=== PATIENT | male | born 1965 | race Asian ===

== ENCOUNTER 2016-09-20 16:56 | Emergency (ER) | payer OTHER ==
[2016-09-20 17:08] VITALS: BP 141/100; PULSE 100; TEMP 97.3; BMI 31.3
--- NOTE | 2016-09-20 17:50 | PDOC ---
History of Present Illness - General Chief Complaint: Blood Sugar Problem Stated Complaint: HIGH BLOOD SUGAR Time Seen by Provider: 09/20/16 17:49 History Source: Patient Exam Limitations: No Limitations - History of Present Illness Initial Comments: 09/20/16 18:19 51 year old male drives to the ED with chief complaints of "high blood sugar of 404". A/c to the patient, his blood sugar has been between 250-300. Patient also experiences dizziness, drowsiness now but reports to have similar symptoms since weeks on/off. Says, he has been compliant with medications but hasn't been following diabetic diet or exercise. Last HbA1c was more than 8. Patient says he has been under a lot of stress. Gets severe headache on/off, went to see Dr. Crhistie and was given Barbiturates which didn't help, as per the patient. Also complaints of abdominal discomfort, abdominal bloating since few weeks, no nausea or vomiting Also reports he has been going to rehab for "group psycho therapy" daily and is under Buprenorphrine. Denies loc, trauma, tinnitus, vertigo, chest pain, sob, cough, palpitations. Bowel habit normal. Increased frequency of urination since he started taking water pills, no dysuria or incontinence. Has B/L leg swelling and is under water pills since few weeks. Rest of the ROS is negative. 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 Grubbs (PCP) Dr. Casanova Past History - Past Medical History Allergies/Adverse Reactions: Allergies Allergy/AdvReac Type Severity Reaction Status Date / Time No Known Allergies Allergy Verified 09/20/16 18:07 Home Medications: Ambulatory Orders Atorvastatin Ca [Lipitor] 10 mg PO HS 09/20/16 Buprenorphine/Naloxone [Suboxone 8Mg/2Mg Sl Film -] 1 each SL DAILY 09/20/16 Furosemide [Lasix] 20 mg PO DAILY 09/20/16 Losartan Potassium 25 mg PO DAILY 09/20/16 Sitagliptin Phos/Metformin HCl [Janumet 50-1,000 mg Tablet] 1 each PO BID Verapamil HCl [Verapamil ER] 120 mg PO DAILY 09/20/16 Anemia: No Asthma: No Cancer: No Cardiac Disorders: No CVA: No COPD: No CHF: No Dementia: No Diabetes: Yes (Type II) GI Disorders: No Disorders: No HTN: Yes (Pt is on meds.) Hypercholesterolemia: Yes (NO MED) Kidney Stones: Yes (sx of kiney stone) Liver Disease: No Psychiatric Problems: Yes (on risperdal) Suicide Attempt (Hx): Yes (last attempt in 1994 MOVERDOSE) Seizures: No Thyroid Disease: No - Surgical History Abdominal Surgery: No Appendectomy: No Cardiac Surgery: No Cholecystectomy: No Lung Surgery: No Neurologic Surgery: No Orthopedic Surgery: No - Reproductive History Testicular Surgery: No - Immunization History Immunization Up to Date: Yes - Psycho/Social/Smoking Cessation Hx Anxiety: No Suicidal Ideation: No Smoking History: Current every day smoker Have you smoked in the past 12 months: Yes Number of Cigarettes Smoked Daily: 20 Information on smoking cessation initiated: No 'Breaking Loose' booklet given: 02/28/16 Hx Alcohol Use: No Drug/Substance Use Hx: No (past) Substance Use Type: Prescribed Hx Substance Use Treatment: Yes (01/10/15 TO 01/15/15) Review of Systems - Review of Systems Able to Perform ROS?: Yes Comments:: 09/20/16 18:59 CONSTITUTIONAL: Present: generalized weakness Absent: fever, chills, diaphoresis, malaise, loss of appetite HEENT: Absent: rhinorrhea, nasal congestion, throat pain, throat swelling, difficulty swallowing, mouth swelling, ear pain, eye pain, visual Changes CARDIOVASCULAR: Absent: chest pain, syncope, palpitations, irregular heart rate, lightheadedness , peripheral edema RESPIRATORY: Absent: cough, shortness of breath, dyspnea with exertion, orthopnea, wheezing, stridor, hemoptysis GASTROINTESTINAL: Present: abdominal discomfort Absent: abdominal pain, abdominal distension, nausea, vomiting, diarrhea, constipation, melena, hematochezia GENITOURINARY: Absent: dysuria, frequency, urgency, hesitancy, hematuria, flank pain, genital pain MUSCULOSKELETAL: Absent: myalgia, arthralgia, joint swelling SKIN: Absent: rash, itching, pallor HEMATOLOGIC/IMMUNOLOGIC: Absent: easy bleeding, easy bruising, lymphadenopathy, frequent infections ENDOCRINE: Absent: unexplained weight gain, unexplained weight loss, heat intolerance, cold intolerance NEUROLOGIC: Present: Dizziness Absent: headache, focal weakness or paresthesias, dizziness, unsteady gait, seizure, mental status changes, bladder or bowel incontinence PSYCHIATRIC: Absent: anxiety, depression, suicidal or homicidal ideation, hallucinations. Is the patient limited Bulgarian proficient: No *Physical Exam - Vital Signs Last Vital Signs Temp Pulse Resp BP Pulse Ox 97.3 F L 100 H 20 141/100 96 09/20/16 17:03 09/20/16 17:03 09/20/16 17:03 09/20/16 17:03 09/20/16 17:03 09/20/16 19:04 PE: GENERAL: Awake, alert, and fully oriented, in no acute distress. HEAD: No signs of trauma EYES: PERRLA, EOMI, sclera anicteric, conjunctiva clear ENT: Auricles normal inspection, hearing grossly normal, nares patent, oropharynx clear without exudates. Moist mucosa NECK: Normal ROM, supple, no lymphadenopathy, JVD, or masses LUNGS: Breath sounds equal, clear to auscultation bilaterally. No wheezes, and no crackles.. HEART: Regular rate and rhythm, normal S1 and S2, no murmurs, rubs or gallops ABDOMEN: Soft, tenderness diffusely, distended +, normoactive bowel sounds. No guarding, no rebound. No masses EXTREMITIES: Normal range of motion, No clubbing or cyanosis. No cords, erythema , or tenderness. B/L pitting edema ++ upto the knees. NEUROLOGICAL: Cranial nerves II through XII grossly intact. Normal speech, Gait not observed. SKIN: Warm, Dry, normal turgor, no rashes or lesions noted. ED Treatment Course - LABORATORY CBC & Chemistry Diagram: 09/20/16 18:15 09/20/16 18:15 Medical Decision Making - Medical Decision Making 09/20/16 19:05 51 year old male with significant past medical h/o Diabetes, Gout, HTN, Substance induced mood disorder, substance abuse under Buprenorphine drives to the ED with chief complaints of "high blood sugar of 404". # Uncontrolled blood sugar- R/o DKA On arrival, patients finger stick glucose was 319 IV fluids @ 75mls/hr Ordered CBC, CMP, VBG, serum ketones- report pending. BMG x 1hrly Illness, Investigation and plan of care explained to the patient. He verbalized understanding. Case discussed with Dr. Maciel. *DC/Admit/Observation/Transfer Diagnosis at time of Disposition: Increased blood glucose
[2016-09-20] MEDS ORDERED: SODIUM CHLORIDE 1,000 ML IV SCH (18:15)
--- NOTE | 2016-09-20 18:48 | PDOC ---
[id number] I have performed the following: I have examined & evaluated the patient, The case was reviewed & discussed with the resident, I agree w/resident's findings & plan, Exceptions are as noted - HPI HPI: 09/20/16 18:47 51-year-old male with history of diabetes presents with hyperglycemia. Patient also has history obstructive sleep apnea and obesity. Reports the last several weeks of having elevated glucose is in the 300s. He had follow-up with his primary care physician wet switched him from metformin to Janumet. Reports adherence to his medications. Today, noted that his sugars were about 400 and came to the emergency department. Reports feeling dehydrated but denies other symptoms such as fevers, chills, cough, vomiting, diarrhea, dysuria. Denies chest pain or shortness of breath. - Physicial Exam PE: 09/20/16 20:40 GENERAL: Awake, alert, and fully oriented, in no acute distress. HEAD: No signs of trauma EYES: PERRLA, EOMI, sclera anicteric, conjunctiva clear ENT: Auricles normal inspection, hearing grossly normal, nares patent, oropharynx clear without exudates. NECK: Normal ROM, supple, no lymphadenopathy, JVD, or masses LUNGS: Breath sounds equal, clear to auscultation bilaterally. No wheezes, and no crackles HEART: Regular rate and rhythm, normal S1 and S2, no murmurs, rubs or gallops ABDOMEN: Soft, nontender, normoactive bowel sounds. No guarding, no rebound. No masses EXTREMITIES: Normal range of motion, no edema. No clubbing or cyanosis. No cords, erythema, or tenderness NEUROLOGICAL: Cranial nerves II through XII grossly intact. Normal speech, normal gait SKIN: Warm, Dry, normal turgor, no rashes or lesions noted. 09/26/16 13:23 CORRECTION TO RESIDENT NOTE. That was not pitting edema. The patient is an obese male but does NOT demonstrate features of pitting edema. Please disregard from resident note. - Medical Decision Making 09/20/16 20:40 We will rule out DKA, though have low suspicion. We'll give IV hydrations and when necessary insulin. If glucose is below 300, we'll encourage patient continue to take his genuine and have patient follow with PMD. Patient did just start his Janumet as well.
[2016-09-20 19:10] LABS: URINE APPEARANCE CLEAR; URINE BILIRUBIN NEGATIVE (NEGATIVE); URINE BLOOD NEGATIVE (NEGATIVE); URINE COLOR LTYELLOW; URINE GLUCOSE (UA) 3+ (NEGATIVE); URINE KETONE NEGATIVE (NEGATIVE); URINE LEUK ESTERASE NEGATIVE (NEGATIVE); URINE NITRITE NEGATIVE (NEGATIVE); URINE PROTEIN NEGATIVE (NEGATIVE); URINE UROBILINOGEN NEGATIVE E.U./dl (0.2-1.0)
[2016-09-20 19:16] LABS: EOSINOPHIL 4.1 % (0-4.5); MCH 30.8 pg (25.7-33.7); MCHC 34.6 g/dl (32.0-35.9); MEAN PLT VOLUME 9.5 fl (7.5-11.1); NEUTROPHILS 65.2 % (42.8-82.8); PLATELET COUNT 219 K/MM3 (134-434); RDW 12.6 % (11.9-15.9); WHITE BLOOD COUNT 8.2 K/mm3 (4.0-10.0)
[2016-09-20 19:24] LABS: INR 0.98 (0.82-1.09); PROTHROMBIN TIME (PATIENT) 10.8 SEC (9.98-11.88)
[2016-09-20 19:27] LABS: ACTIVATED PTT 36.9 SECONDS (26.9-34.4)
[2016-09-20 19:37] LABS: VENOUS PH 7.36 (7.32-7.42)
[2016-09-20 19:40] LABS: ALBUMIN 4.2 g/dl (3.4-5.0); ANION GAP 13 (8-16); CALCIUM 9.7 mg/dL (8.5-10.1); CO2 28 mmol/L (21-32); GLUCOSE,RANDOM 241 mg/dL (74-106)
[2016-09-20 19:43] LABS: ALK PHOS 130 U/L (45-117); BILIRUBIN,TOTAL 0.7 mg/dL (0.2-1.0); CREATININE 1.1 mg/dL (0.7-1.3); SGOT/AST 44 U/L (15-37); SGPT/ALT 68 U/L (12-78); TOT PROT 7.5 g/dl (6.4-8.2)
--- NOTE | 2016-09-20 20:41 | PDOC ---
*Physical Exam - Vital Signs Last Vital Signs Temp Pulse Resp BP Pulse Ox 97.3 F L 100 H 20 141/100 96 09/20/16 17:03 09/20/16 17:03 09/20/16 17:03 09/20/16 17:03 09/20/16 17:03 ED Treatment Course - LABORATORY CBC & Chemistry Diagram: 09/20/16 18:15 09/20/16 18:15 - ADDITIONAL ORDERS Additional order review: Laboratory Results 09/20/16 09/20/16 09/20/16 19:04 19:04 18:53 INR PTT (Actin FS) VBG pH 7.36 POC VBG pCO2 54.8 H POC VBG pO2 19.5 L* Mixed VBG HCO3 30.0 H Sodium Potassium Chloride Carbon Dioxide Anion Gap BUN Creatinine Creat Clearance w eGFR POC Glucometer Random Glucose Calcium Total Bilirubin AST ALT Alkaline Phosphatase B-Natriuretic Peptide 22.77 Total Protein Albumin Urine Color Ltyellow Urine Appearance Clear Urine pH 5.0 Ur Specific [place] 1.017 Urine Protein Negative Urine Glucose (UA) 3+ H Urine Ketones Negative Urine Blood Negative Urine Nitrite Negative Urine Bilirubin Negative Urine Urobilinogen Negative Ur Leukocyte Esterase Negative 09/20/16 09/20/16 09/20/16 18:43 18:15 18:00 INR 0.98 PTT (Actin FS) 36.9 H VBG pH POC VBG pCO2 POC VBG pO2 Mixed VBG HCO3 Sodium 136 Potassium 4.3 Chloride 95 L Carbon Dioxide 28 Anion Gap 13 BUN 16 D Creatinine 1.1 D Creat Clearance w eGFR > 60 POC Glucometer [phone] Random Glucose 241 H D Calcium 9.7 Total Bilirubin 0.7 D AST 44 H ALT 68 Alkaline Phosphatase 130 H D B-Natriuretic Peptide Total Protein 7.5 Albumin 4.2 Urine Color Urine Appearance Urine pH Ur Specific [place] Urine Protein Urine Glucose (UA) Urine Ketones Urine Blood Urine Nitrite Urine Bilirubin Urine Urobilinogen Ur Leukocyte Esterase 09/20/16 09/20/16 18:15 18:00 RBC 4.56 MCV 89.0 MCHC 34.6 RDW 12.6 MPV 9.5 Neutrophils % 65.2 Lymphocytes % 22.9 Monocytes % 6.8 Eosinophils % 4.1 Basophils % 1.0 POC Glucometer [phone] Medical Decision Making - Medical Decision Making 09/20/16 20:41 CBC, BMP 09/20/16 18:15 09/20/16 18:15 CMP Sodium 136 mmol/L (136-145) 09/20/16 18:15 Potassium 4.3 mmol/L (3.5-5.1) 09/20/16 18:15 Chloride 95 mmol/L (98-107) L 09/20/16 18:15 Carbon Dioxide 28 mmol/L (21-32) 09/20/16 18:15 Anion Gap 13 (8-16) 09/20/16 18:15 BUN 16 mg/dL (7-18) D 09/20/16 18:15 Creatinine 1.1 mg/dL (0.7-1.3) D 09/20/16 18:15 Creat Clearance w eGFR > 60 (>60) 09/20/16 18:15 POC Glucometer 319.31962 UNITS (()) 09/20/16 18:00 Random Glucose 241 mg/dL (74-106) H D 09/20/16 18:15 Calcium 9.7 mg/dL (8.5-10.1) 09/20/16 18:15 Total Bilirubin 0.7 mg/dL (0.2-1.0) D 09/20/16 18:15 AST 44 U/L (15-37) H 09/20/16 18:15 ALT 68 U/L (12-78) 09/20/16 18:15 Alkaline Phosphatase 130 U/L (45-117) H D 09/20/16 18:15 B-Natriuretic Peptide 22.77 pg/ml (5-125) 09/20/16 19:04 Total Protein 7.5 g/dl (6.4-8.2) 09/20/16 18:15 Albumin 4.2 g/dl (3.4-5.0) 09/20/16 18:15 Glucose is 241. Patient reports feeling much better after IVF. No AG. Will have patient continue to take his own medications and follow up with PMD. Patient satisfied with his care. I discussed the physical exam findings, ancillary test results and final diagnoses with the patient. I answered all of the patient's questions. The patient was satisfied with the care received and felt comfortable with the discharge plan and treatment plan. The patient will call their primary care physician within 24 hours to arrange follow-up and will return to the Emergency Department with any new, persistant or worsening symptoms. *DC/Admit/Observation/Transfer Diagnosis at time of Disposition: Blood sugar increased - Discharge Dispostion Disposition: HOME Condition at time of disposition: Improved Admit: No - Referrals Referrals: Tan Grubbs MD [Primary Care Provider] - - Patient Instructions Printed Discharge Instructions: DI for Hyperglycemia -- Adult Additional Instructions: Please continue to take you diabetes medication. Please drink plenty of fluids and rest. Follow up with your doctor. Call to schedule an appointment. - Post Discharge Activity
--- NOTE | 2016-09-23 16:24 | EKG ---
Test Reason : Blood Pressure : / mmHG Vent. Rate : 095 BPM Atrial Rate : 095 BPM P-R Int : 160 ms QRS Dur : 098 ms QT Int : 370 ms P-R-T Axes : 049 082 049 degrees QTc Int : 464 ms NORMAL SINUS RHYTHM NORMAL ECG WHEN COMPARED WITH ECG OF 01-JAN-2014 07:50, NO SIGNIFICANT CHANGE WAS FOUND Confirmed by TRI SAUCEDO MD ([id number]) on 09/23/2016 4:23:34 PM Referred By: Confirmed By:TRI SAUCEDO MD
== END 2016-09-20 20:50 | disposition home or self-care (01) ==
LOC: JER 16:56
DX: E11.65 Type 2 diabetes mellitus with hyperglycemia (principal); F99 Mental disorder, not otherwise specified; I10 Essential (primary) hypertension; F17.210 Nicotine dependence, cigarettes, uncomplicated
CPT/HCPCS: 36415; 80053; 81003; 82009; 82803; 83880; 85025; 85610; 85730; 93005; 93010; 99285-25

== ENCOUNTER → 2016-11-25 | Emergency (ER) | payer OTHER ==
[2016-11-25 16:08] VITALS: BP 138/83; PULSE 95; BMI 69.0
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
--- NOTE | 2016-11-27 08:21 | EKG ---
Test Reason : Blood Pressure : / mmHG Vent. Rate : 087 BPM Atrial Rate : 087 BPM P-R Int : 162 ms QRS Dur : 098 ms QT Int : 382 ms P-R-T Axes : 050 055 049 degrees QTc Int : 459 ms NORMAL SINUS RHYTHM POSSIBLE LEFT ATRIAL ENLARGEMENT POSSIBLE INFERIOR INFARCT , AGE UNDETERMINED ABNORMAL ECG WHEN COMPARED WITH ECG OF 20-SEP-2016 17:11, NO SIGNIFICANT CHANGE WAS FOUND Confirmed by SHERYL SARAVIA, TRI ([id number]) on 11/27/2016 8:20:47 AM Referred By: Confirmed By:TRI SAUCEDO MD
== END | disposition home or self-care (01) ==
LOC: JER 16:01
DX: Z04.1 Encounter for examination and observation following transport accident (principal); V43.52XA Car driver injured in collision with other type car in traffic accident, initial encounter; Y92.414 Local residential or business street as the place of occurrence of the external cause; Y93.89 Activity, other specified; I10 Essential (primary) hypertension; E78.00 Pure hypercholesterolemia, unspecified; F17.210 Nicotine dependence, cigarettes, uncomplicated; Z87.442 Personal history of urinary calculi
CPT/HCPCS: 93005; 93010; 99281-25

== ENCOUNTER 2017-04-04 08:24 | Inpatient (IN) | payer OTHER ==
[2017-04-04 10:59] VITALS: BMI 33.5
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
[2017-04-04] MEDS ORDERED: MAGNESIUM HYDROX 2400MG/30ML ORAL SUSPENSION 30 ML CUP PO PRN (12:35)
[2017-04-04] MEDS ORDERED: MENTHOL/PHENOL 1 EACH UD MM PRN (12:35)
[2017-04-04] MEDS ORDERED: MAGNESIUM CITRATE 300 ML BOTTLE PO PRN (12:35)
[2017-04-04] MEDS ORDERED: ACETAMINOPHEN 325 MG TABLET (FP) PO PRN (12:35)
[2017-04-04] MEDS ORDERED: P-EPHED 60MG/TRIPROLIDI 2.5MG TABLET PO PRN (12:35)
[2017-04-04] MEDS ORDERED: IBUPROFEN 600 MG TABLET (FP) PO PRN (12:35)
[2017-04-04] MEDS ORDERED: LOPERAMIDE HCL 2 MG CAPSULE PO PRN (12:35)
[2017-04-04] MEDS ORDERED: MAG HYDROX/AL HYDROX/SIMETH 30 ML UNIT-DOSE CUP PO PRN (12:35)
[2017-04-04] MEDS ORDERED: guaiFENesin/D-METHORPHAN HB 10 ML UNIT-DOSE CUPS PO PRN (12:35)
[2017-04-04] MEDS ORDERED: METHADONE HCL 10 MG TABLET (FOR DETOX USE ONLY) PO ONE ×2 (13:15→23:00)
[2017-04-04] MEDS: diazePAM 5 MG TABLET PO PRN ×2 (13:41→18:12)
[2017-04-04 15:44] LABS: HIV 1 & 2 AB NEGATIVE; HIV 1 AGp24 NEGATIVE
--- NOTE | 2017-04-04 15:46 | CONSULT ---
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 Substance Abuse History: Discussed in this session.Patient confirmed this account from [facility] report. Smoking Cessation. Smoking history: Current every day smoker. Have you smoked in the past 12 months: Yes. Aproximately how many cigarettes per day: 20. Hx Chewing Tobacco Use: No. Initiated information on smoking cessation: Yes. 'Breaking Loose' booklet given: 04/04/17. - Substance & Tx. History. Hx Alcohol Use: Yes. Hx Substance Use: Yes. Substance Use Type : Alcohol, Heroin. Hx Substance Use Treatment: Yes (last detox 02/2016). - Substances Abused. Percocet. Route: Oral. Frequency: Daily. Amount used: 20 tabs. (10 mg.). Age of first use: 47. Date of Last Use: 04/04/17. Alcohol-whisky. Route: Oral. Frequency: 1-3 times last 30 days. Amount used: 2 shots. Age of first use: 16. Date of Last Use: 04/02/17 Medical History: Remarkable for insulin-dependent diabetes mellitus,dyslipidemia ,hypertension,gout,obstructive sleep apnea and a history of nephrolithiasis. Psychiatric History: Mr Parikh admits to a remote history of psychiatric hospitalizations (30 years ago).Diagnosed with Paranoid Schizophrenia.Used to be on various antipsychotic drugs including thorazine,haloperidol and risperdal.Patient reports that he has been off medications for more than six months following a gradual taper by his psychiatrists.Doing well in spite of this reported drug holiday.Patient denies history of suicide attempts.Mr Parikh declares that he dropped out the suboxone program because of intolerable adverse effects (severe cognitive impairment,oversedation). Physical/Sexual Abuse/Trauma History: Patient denies. Additional Comment: Urine Drug Screen Results: OXY-Oxycodone.Noted. Mental Status Exam - Mental Status Exam Alert and Oriented to: Time, Place, Person Cognitive Function: Good Patient Appearance: Well Groomed (obese) Mood: Hopeful, Euthymic Affect: Appropriate, Normal Range Patient Behavior: Appropriate, Cooperative (friendly) Speech Pattern: Clear, Appropriate (mongolian fluent - raised in the [place] age 8 - and articulate) Voice Loudness: Normal Thought Process: Goal Oriented Thought Disorder: Not Present Hallucinations: Denies Suicidal Ideation: Denies Homicidal Ideation: Denies Insight/Judgement: Poor Sleep: Well Appetite: Good Muscle strength/Tone: Normal Gait/Station: Normal Psychiatric Findings - Problem List ([place] 1, 2,3) (1) Paranoid schizophrenia Current Visit: Yes Status: Chronic Comment: Off antipsychotic medications for more than six months. (2) Opioid dependence with withdrawal Current Visit: Yes Status: Acute Comment: pt meets criteria for buprenorphine induction rx given will induce with titration 02/27-02/28 #8 x 2mg tabs (3) Nicotine dependence Current Visit: Yes Status: Acute Qualifiers: Nicotine product type: cigarettes Substance use status: uncomplicated Qualified Code(s): F17.210 - Nicotine dependence, cigarettes, uncomplicated (4) Diabetes mellitus Current Visit: Yes Status: Chronic Qualifiers: Diabetes mellitus type: type 2 Diabetes mellitus complication status: without complication (5) Hypertension Current Visit: Yes Status: Chronic Qualifiers: Hypertension type: essential hypertension Qualified Code(s): I10 - Essential (primary) hypertension (6) Obesity Current Visit: Yes Status: Chronic Qualifiers: Obesity classification: adult class 1 (BMI 30 ? 34.9) Body mass index: BMI 33.0-33.9 (7) RAMA (obstructive sleep apnea) Current Visit: Yes Status: Chronic (8) Gout Current Visit: Yes Status: Chronic - Initial Treatment Plan Initial Treatment Plan: Psychoeducation.Detoxification.Observation.
[2017-04-04] MEDS ORDERED: INSULIN (NOVOLOG) ASPART 100 UNITS/ML 10ML VIAL ONE (17:01)
[2017-04-04] MEDS: INSULIN (NOVOLOG) ASPART 100 UNITS/ML 10ML VIAL SQ SCH (17:07)
[2017-04-04 21:13] LABS: PH,URINE 5.5 (5.0-8.0); URINE APPEARANCE CLEAR; URINE BILIRUBIN NEGATIVE (NEGATIVE); URINE BLOOD NEGATIVE (NEGATIVE); URINE COLOR LT. YELLOW; URINE GLUCOSE (UA) 1+ (NEGATIVE); URINE KETONE 1+ (NEGATIVE); URINE LEUK ESTERASE NEGATIVE (NEGATIVE); URINE NITRITE NEGATIVE (NEGATIVE); URINE PROTEIN NEGATIVE (NEGATIVE); URINE UROBILINOGEN 0.2 mg/dL (0.2-1.0)
[2017-04-04] MEDS: ATORVASTATIN CA 10 MG TABLET (FP) PO SCH (22:20)
[2017-04-04] MEDS: THIAMINE HCL 100 MG TABLET (FP) PO SCH (22:20)
[2017-04-05] MEDS: diazePAM 5 MG TABLET PO PRN ×4 (00:25→22:11)
[2017-04-05] MEDS: diphenhydrAMINE HCL 50 MG CAPSULE PO PRN ×2 (00:26→22:11)
[2017-04-05] MEDS: metFORMIN HCL 500 MG TABLET (FP) PO SCH (07:35)
[2017-04-05] MEDS ORDERED: INSULIN (NOVOLOG) ASPART 100 UNITS/ML 10ML VIAL ONE ×2 (07:38→11:30)
[2017-04-05] MEDS: INSULIN (NOVOLOG) ASPART 100 UNITS/ML 10ML VIAL SQ SCH ×3 (07:40→16:50)
[2017-04-05] MEDS ORDERED: METHADONE HCL 10 MG TABLET (FOR DETOX USE ONLY) PO ONE (10:00)
[2017-04-05 10:31] LABS: MCH 31.4 pg (25.7-33.7); MCHC 34.1 g/dl (32.0-35.9); MEAN CELL VOLUME 92.2 fl (80-96); MEAN PLT VOLUME 9.8 fl (7.5-11.1); PLATELET COUNT 233 K/MM3 (134-434); RDW 12.7 % (11.9-15.9)
[2017-04-05] MEDS: PRENATAL VITAMINS W/ FOLIC ACID TABLET (FP) PO SCH (10:45)
[2017-04-05] MEDS: hydrOXYzine PAMOATE 50 MG CAPSULE (FP) PO PRN (10:45)
[2017-04-05] MEDS: NICOTINE 21 MG/24 HOURS TOPICAL PATCH TD SCH (10:46)
[2017-04-05 10:49] LABS: CALCIUM 9.9 mg/dL (8.5-10.1)
[2017-04-05 10:55] LABS: ALBUMIN 4.3 g/dl (3.4-5.0); ALK PHOS 86 U/L (45-117); ANION GAP 10 (8-16); BILIRUBIN,TOTAL 0.9 mg/dL (0.2-1.0); CO2 26 mmol/L (21-32); CREATININE 0.9 mg/dL (0.7-1.3); GLUCOSE,RANDOM 175 mg/dL (74-106); SGOT/AST 25 U/L (15-37); SGPT/ALT 46 U/L (12-78); TOT PROT 7.5 g/dl (6.4-8.2)
--- NOTE | 2017-04-05 11:11 | PN ---
BHS COWS - Scale Resting Pulse: 1= [place] 81-100 Sweatin= Chills/Flushing Restless Observation: 1= Difficult to Sit Still Pupil Size: 1= Pupils >than Normal Bone or Joint Aches: 1= Mild Discomfort Runny Nose/ Eye Tearin= Nasal Congestion GI Upset > 30mins: 2= Nausea/Diarrhea Tremor Observation of Outstretched Hands: 1= Tremor [place], Not Seen Yawning Observation: 1= 1-2x During Session Anxiety or Irritability: 2=Irritable/Anxious Goose Flesh Skin: 3=Piloerection COWS Score: 15 S Progress Note (SOAP) Subjective: nausea, sweats, interrupted sleep, anxiety, tremors Objective: 04/05/17 11:10 Vital Signs - 8 hr 04/05/17 04/05/17 04/05/17 03:30 06:00 10:07 Temperature 97.2 F L 97.5 F L Pulse Rate 66 86 Respiratory 18 18 16 Rate Blood Pressure 143/77 138/80 Laboratory Tests 04/04/17 04/04/17 04/04/17 10:34 12:00 14:00 WBC RBC Hgb Hct MCV MCH MCHC RDW Plt Count MPV Sodium Potassium Chloride Carbon Dioxide Anion Gap BUN Creatinine Creat Clearance w eGFR POC Glucometer 214 Random Glucose Calcium Total Bilirubin AST ALT Alkaline Phosphatase Total Protein Albumin Urine Color Lt. yellow Urine Appearance Clear Urine pH 5.5 Ur Specific [place] >= 1.030 H Urine Protein Negative Urine Glucose (UA) 1+ H Urine Ketones 1+ H Urine Blood Negative Urine Nitrite Negative Urine Bilirubin Negative Urine Urobilinogen 0.2 Ur Leukocyte Esterase Negative HIV 1&2 Antibody Screen Negative HIV P24 Antigen Negative 04/04/17 04/05/17 04/05/17 16:41 06:00 06:00 WBC 9.0 RBC 4.76 Hgb 15.0 Hct 43.9 MCV 92.2 MCH 31.4 MCHC 34.1 RDW 12.7 Plt Count 233 MPV 9.8 Sodium 138 Potassium 4.4 Chloride 102 Carbon Dioxide 26 Anion Gap 10 BUN 13 Creatinine 0.9 Creat Clearance w eGFR > 60 POC Glucometer 248 Random Glucose 175 H D Calcium 9.9 Total Bilirubin 0.9 D AST 25 D ALT 46 D Alkaline Phosphatase 86 D Total Protein 7.5 Albumin 4.3 Urine Color Urine Appearance Urine pH Ur Specific [place] Urine Protein Urine Glucose (UA) Urine Ketones Urine Blood Urine Nitrite Urine Bilirubin Urine Urobilinogen Ur Leukocyte Esterase HIV 1&2 Antibody Screen HIV P24 Antigen Assessment: 04/05/17 11:11 withdrawal sx Plan: cont detox, fluids
[2017-04-05] MEDS: LOSARTAN POTASSIUM 25 MG TABLET PO SCH (11:57)
[2017-04-05] MEDS: VERAPAMIL HCL 120 MG E.R. TABLET PO SCH (11:58)
--- NOTE | 2017-04-05 13:03 | EKG ---
Test Reason : Blood Pressure : / mmHG Vent. Rate : 074 BPM Atrial Rate : 074 BPM P-R Int : 150 ms QRS Dur : 102 ms QT Int : 384 ms P-R-T Axes : 022 040 056 degrees QTc Int : 426 ms NORMAL SINUS RHYTHM QWAVES IN III AND aVF PROBABLE EARLY REPOLARIZATION PATTERN WHEN COMPARED WITH ECG OF 25-NOV-2016 16:14, NO SIGNIFICANT CHANGE WAS FOUND REPEAT EKG IF CLINICALLY INDICATED Confirmed by ANDERSON PALACIOS MD ([id number]) on 04/05/2017 1:02:53 PM Referred By: Confirmed By:ANDERSON PALACIOS MD
[2017-04-05] MEDS: NICOTINE POLACRILEX 4 MG GUM BC PRN (14:22)
[2017-04-05] MEDS: THIAMINE HCL 100 MG TABLET (FP) PO SCH (22:11)
[2017-04-05] MEDS: ATORVASTATIN CA 10 MG TABLET (FP) PO SCH (22:11)
[2017-04-06] MEDS ORDERED: INSULIN (NOVOLOG) ASPART 100 UNITS/ML 10ML VIAL ONE ×3 (06:23→17:08)
[2017-04-06] MEDS: metFORMIN HCL 500 MG TABLET (FP) PO SCH (06:50)
[2017-04-06] MEDS: INSULIN (NOVOLOG) ASPART 100 UNITS/ML 10ML VIAL SQ SCH ×3 (06:56→17:17)
[2017-04-06] MEDS ORDERED: METHADONE HCL 5 MG TABLET (FOR DETOX USE ONLY) PO ONE (10:00)
--- NOTE | 2017-04-06 10:19 | PN ---
S COWS - Scale Resting Pulse: 1= [place] 81-100 Sweatin= Chills/Flushing Restless Observation: 1= Difficult to Sit Still Pupil Size: 1= Pupils >than Normal Bone or Joint Aches: 1= Mild Discomfort Runny Nose/ Eye Tearin= Nasal Congestion GI Upset > 30mins: 2= Nausea/Diarrhea Tremor Observation of Outstretched Hands: 1= Tremor [place], Not Seen Yawning Observation: 1= 1-2x During Session Anxiety or Irritability: 2=Irritable/Anxious Goose Flesh Skin: 3=Piloerection COWS Score: 15 S Progress Note (SOAP) Subjective: nausea, sweats, interrutped sleep, anxiety, tremors Objective: 04/06/17 10:18 Vital Signs - 24 hr 04/05/17 04/05/17 04/05/17 14:41 18:21 23:17 Temperature 98.1 F 97.3 F L 97.9 F Pulse Rate 97 H 100 H 89 Respiratory 18 20 18 Rate Blood Pressure 150/92 148/86 147/90 04/06/17 04/06/17 04/06/17 00:30 03:30 06:19 Temperature 96.6 F L Pulse Rate 90 Respiratory 18 18 20 Rate Blood Pressure 129/90 Laboratory Tests 04/04/17 04/04/17 04/04/17 10:34 12:00 14:00 WBC RBC Hgb Hct MCV MCH MCHC RDW Plt Count MPV Sodium Potassium Chloride Carbon Dioxide Anion Gap BUN Creatinine Creat Clearance w eGFR POC Glucometer 214 Random Glucose Calcium Total Bilirubin AST ALT Alkaline Phosphatase Total Protein Albumin Urine Color Lt. yellow Urine Appearance Clear Urine pH 5.5 Ur Specific [place] >= 1.030 H Urine Protein Negative Urine Glucose (UA) 1+ H Urine Ketones 1+ H Urine Blood Negative Urine Nitrite Negative Urine Bilirubin Negative Urine Urobilinogen 0.2 Ur Leukocyte Esterase Negative RPR Titer HIV 1&2 Antibody Screen Negative HIV P24 Antigen Negative 04/04/17 04/05/17 04/05/17 16:41 06:00 06:00 WBC 9.0 RBC 4.76 Hgb 15.0 Hct 43.9 MCV 92.2 MCH 31.4 MCHC 34.1 RDW 12.7 Plt Count 233 MPV 9.8 Sodium 138 Potassium 4.4 Chloride 102 Carbon Dioxide 26 Anion Gap 10 BUN 13 Creatinine 0.9 Creat Clearance w eGFR > 60 POC Glucometer 248 Random Glucose 175 H D Calcium 9.9 Total Bilirubin 0.9 D AST 25 D ALT 46 D Alkaline Phosphatase 86 D Total Protein 7.5 Albumin 4.3 Urine Color Urine Appearance Urine pH Ur Specific [place] Urine Protein Urine Glucose (UA) Urine Ketones Urine Blood Urine Nitrite Urine Bilirubin Urine Urobilinogen Ur Leukocyte Esterase RPR Titer HIV 1&2 Antibody Screen HIV P24 Antigen 04/05/17 04/05/17 04/05/17 06:00 11:27 16:28 WBC RBC Hgb Hct MCV MCH MCHC RDW Plt Count MPV Sodium Potassium Chloride Carbon Dioxide Anion Gap BUN Creatinine Creat Clearance w eGFR POC Glucometer 182 142 Random Glucose Calcium Total Bilirubin AST ALT Alkaline Phosphatase Total Protein Albumin Urine Color Urine Appearance Urine pH Ur Specific [place] Urine Protein Urine Glucose (UA) Urine Ketones Urine Blood Urine Nitrite Urine Bilirubin Urine Urobilinogen Ur Leukocyte Esterase RPR Titer Nonreactive HIV 1&2 Antibody Screen HIV P24 Antigen 04/06/17 05:53 WBC RBC Hgb Hct MCV MCH MCHC RDW Plt Count MPV Sodium Potassium Chloride Carbon Dioxide Anion Gap BUN Creatinine Creat Clearance w eGFR POC Glucometer 194 Random Glucose Calcium Total Bilirubin AST ALT Alkaline Phosphatase Total Protein Albumin Urine Color Urine Appearance Urine pH Ur Specific [place] Urine Protein Urine Glucose (UA) Urine Ketones Urine Blood Urine Nitrite Urine Bilirubin Urine Urobilinogen Ur Leukocyte Esterase RPR Titer HIV 1&2 Antibody Screen HIV P24 Antigen Assessment: 04/06/17 10:19 withdrawal sx Plan: cont detox
[2017-04-06] MEDS: LOSARTAN POTASSIUM 25 MG TABLET PO SCH (10:35)
[2017-04-06] MEDS: PRENATAL VITAMINS W/ FOLIC ACID TABLET (FP) PO SCH (10:35)
[2017-04-06] MEDS: NICOTINE 21 MG/24 HOURS TOPICAL PATCH TD SCH (10:36)
[2017-04-06] MEDS: VERAPAMIL HCL 120 MG E.R. TABLET PO SCH (10:36)
[2017-04-06] MEDS: diazePAM 5 MG TABLET PO PRN ×3 (10:39→22:19)
[2017-04-06] MEDS: NICOTINE POLACRILEX 4 MG GUM BC PRN (18:32)
[2017-04-06] MEDS: THIAMINE HCL 100 MG TABLET (FP) PO SCH (22:18)
[2017-04-06] MEDS: diphenhydrAMINE HCL 50 MG CAPSULE PO PRN (22:19)
[2017-04-06] MEDS: ATORVASTATIN CA 10 MG TABLET (FP) PO SCH (23:16)
[2017-04-07] MEDS: diphenhydrAMINE HCL 50 MG CAPSULE PO PRN ×2 (00:57→22:14)
[2017-04-07] MEDS ORDERED: INSULIN (NOVOLOG) ASPART 100 UNITS/ML 10ML VIAL ONE ×3 (07:53→16:39)
[2017-04-07] MEDS: metFORMIN HCL 500 MG TABLET (FP) PO SCH (07:55)
[2017-04-07] MEDS: INSULIN (NOVOLOG) ASPART 100 UNITS/ML 10ML VIAL SQ SCH ×3 (07:56→17:45)
[2017-04-07] MEDS ORDERED: METHADONE HCL 5 MG TABLET (FOR DETOX USE ONLY) PO ONE (10:00)
[2017-04-07] MEDS: VERAPAMIL HCL 120 MG E.R. TABLET PO SCH (10:10)
[2017-04-07] MEDS: hydrOXYzine PAMOATE 50 MG CAPSULE (FP) PO PRN (10:10)
[2017-04-07] MEDS: PRENATAL VITAMINS W/ FOLIC ACID TABLET (FP) PO SCH (10:10)
[2017-04-07] MEDS: diazePAM 5 MG TABLET PO PRN (10:10)
[2017-04-07] MEDS: LOSARTAN POTASSIUM 25 MG TABLET PO SCH (10:10)
[2017-04-07] MEDS: NICOTINE 21 MG/24 HOURS TOPICAL PATCH TD SCH (10:11)
--- NOTE | 2017-04-07 10:42 | PN ---
BHS Progress Note (SOAP) Subjective: nausea, sweats, interrupted sleep, anxiety, tremors Objective: 04/07/17 10:41 Vital Signs 04/07/17 04/07/17 04/07/17 03:30 06:34 09:31 Temperature 98.1 F Pulse Rate 90 87 Respiratory 18 20 18 Rate Blood Pressure 112/83 135/75 Laboratory Tests 04/04/17 04/04/17 04/04/17 10:34 12:00 14:00 WBC RBC Hgb Hct MCV MCH MCHC RDW Plt Count MPV Sodium Potassium Chloride Carbon Dioxide Anion Gap BUN Creatinine Creat Clearance w eGFR POC Glucometer 214 Random Glucose Calcium Total Bilirubin AST ALT Alkaline Phosphatase Total Protein Albumin Urine Color Lt. yellow Urine Appearance Clear Urine pH 5.5 Ur Specific [place] >= 1.030 H Urine Protein Negative Urine Glucose (UA) 1+ H Urine Ketones 1+ H Urine Blood Negative Urine Nitrite Negative Urine Bilirubin Negative Urine Urobilinogen 0.2 Ur Leukocyte Esterase Negative RPR Titer HIV 1&2 Antibody Screen Negative HIV P24 Antigen Negative 04/04/17 04/05/17 04/05/17 16:41 06:00 06:00 WBC 9.0 RBC 4.76 Hgb 15.0 Hct 43.9 MCV 92.2 MCH 31.4 MCHC 34.1 RDW 12.7 Plt Count 233 MPV 9.8 Sodium 138 Potassium 4.4 Chloride 102 Carbon Dioxide 26 Anion Gap 10 BUN 13 Creatinine 0.9 Creat Clearance w eGFR > 60 POC Glucometer 248 Random Glucose 175 H D Calcium 9.9 Total Bilirubin 0.9 D AST 25 D ALT 46 D Alkaline Phosphatase 86 D Total Protein 7.5 Albumin 4.3 Urine Color Urine Appearance Urine pH Ur Specific [place] Urine Protein Urine Glucose (UA) Urine Ketones Urine Blood Urine Nitrite Urine Bilirubin Urine Urobilinogen Ur Leukocyte Esterase RPR Titer HIV 1&2 Antibody Screen HIV P24 Antigen 04/05/17 04/05/17 04/05/17 06:00 11:27 16:28 WBC RBC Hgb Hct MCV MCH MCHC RDW Plt Count MPV Sodium Potassium Chloride Carbon Dioxide Anion Gap BUN Creatinine Creat Clearance w eGFR POC Glucometer 182 142 Random Glucose Calcium Total Bilirubin AST ALT Alkaline Phosphatase Total Protein Albumin Urine Color Urine Appearance Urine pH Ur Specific [place] Urine Protein Urine Glucose (UA) Urine Ketones Urine Blood Urine Nitrite Urine Bilirubin Urine Urobilinogen Ur Leukocyte Esterase RPR Titer Nonreactive HIV 1&2 Antibody Screen HIV P24 Antigen 04/06/17 04/06/17 04/06/17 05:53 11:42 16:36 WBC RBC Hgb Hct MCV MCH MCHC RDW Plt Count MPV Sodium Potassium Chloride Carbon Dioxide Anion Gap BUN Creatinine Creat Clearance w eGFR POC Glucometer 194 262 262 Random Glucose Calcium Total Bilirubin AST ALT Alkaline Phosphatase Total Protein Albumin Urine Color Urine Appearance Urine pH Ur Specific [place] Urine Protein Urine Glucose (UA) Urine Ketones Urine Blood Urine Nitrite Urine Bilirubin Urine Urobilinogen Ur Leukocyte Esterase RPR Titer HIV 1&2 Antibody Screen HIV P24 Antigen Assessment: 04/07/17 10:42 withdrawal sx Plan: cont detox
[2017-04-07] MEDS: THIAMINE HCL 100 MG TABLET (FP) PO SCH (22:14)
[2017-04-07] MEDS: ATORVASTATIN CA 10 MG TABLET (FP) PO SCH (22:14)
[2017-04-08] MEDS ORDERED: INSULIN (NOVOLOG) ASPART 100 UNITS/ML 10ML VIAL ONE ×4 (06:34→16:47)
[2017-04-08] MEDS: metFORMIN HCL 500 MG TABLET (FP) PO SCH (06:48)
[2017-04-08] MEDS: INSULIN (NOVOLOG) ASPART 100 UNITS/ML 10ML VIAL SQ SCH ×3 (06:49→16:46)
[2017-04-08] MEDS ORDERED: METHADONE HCL 10 MG TABLET (FOR DETOX USE ONLY) PO ONE (10:00)
[2017-04-08] MEDS: PRENATAL VITAMINS W/ FOLIC ACID TABLET (FP) PO SCH (10:34)
[2017-04-08] MEDS: LOSARTAN POTASSIUM 25 MG TABLET PO SCH (10:34)
[2017-04-08] MEDS: NICOTINE 21 MG/24 HOURS TOPICAL PATCH TD SCH (10:34)
[2017-04-08] MEDS: VERAPAMIL HCL 120 MG E.R. TABLET PO SCH (10:34)
--- NOTE | 2017-04-08 11:26 | PN ---
BHS Progress Note (SOAP) Subjective: anxiety sweats Objective: 04/08/17 11:25 Vital Signs Temperature 97.2 F L 04/08/17 10:55 Pulse Rate 90 04/08/17 10:55 Respiratory Rate 18 04/08/17 10:55 Blood Pressure 137/83 04/08/17 10:55 O2 Sat by Pulse Oximetry (%) awake/alert ambulating no acute distress Assessment: 04/08/17 11:25 mild withdrawal sx Plan: continue detox increase fluids d/c in am
[2017-04-08] MEDS: THIAMINE HCL 100 MG TABLET (FP) PO SCH (22:19)
[2017-04-08] MEDS: diphenhydrAMINE HCL 50 MG CAPSULE PO PRN (22:19)
[2017-04-08] MEDS: ATORVASTATIN CA 10 MG TABLET (FP) PO SCH (22:19)
[2017-04-09] MEDS ORDERED: METHADONE HCL 5 MG TABLET (FOR DETOX USE ONLY) PO ONE (06:00)
[2017-04-09] MEDS ORDERED: INSULIN (NOVOLOG) ASPART 100 UNITS/ML 10ML VIAL ONE (06:26)
[2017-04-09] MEDS: metFORMIN HCL 500 MG TABLET (FP) PO SCH (06:28)
[2017-04-09] MEDS: INSULIN (NOVOLOG) ASPART 100 UNITS/ML 10ML VIAL SQ SCH (06:28)
--- NOTE | 2017-04-09 09:21 | DS ---
[facility] Detox Discharge Summary Admission Date: 04/04/17 Discharge Date: 04/09/17 - History Present History: Opioid Dependence Pertinent Past History: nicotine dependence, DM, gout, insomnia, anxiety, depression - Physical Exam Results Vital Signs: Vital Signs Temperature 97.7 F 04/09/17 05:53 Pulse Rate 91 H 04/09/17 05:53 Respiratory Rate 18 04/09/17 05:53 Blood Pressure 136/86 04/09/17 05:53 O2 Sat by Pulse Oximetry (%) Laboratory Tests 04/04/17 04/04/17 04/04/17 10:34 12:00 14:00 WBC RBC Hgb Hct MCV MCH MCHC RDW Plt Count MPV Sodium Potassium Chloride Carbon Dioxide Anion Gap BUN Creatinine Creat Clearance w eGFR POC Glucometer 214 Random Glucose Calcium Total Bilirubin AST ALT Alkaline Phosphatase Total Protein Albumin Urine Color Lt. yellow Urine Appearance Clear Urine pH 5.5 Ur Specific [place] >= 1.030 H Urine Protein Negative Urine Glucose (UA) 1+ H Urine Ketones 1+ H Urine Blood Negative Urine Nitrite Negative Urine Bilirubin Negative Urine Urobilinogen 0.2 Ur Leukocyte Esterase Negative RPR Titer HIV 1&2 Antibody Screen Negative HIV P24 Antigen Negative 04/04/17 04/05/17 04/05/17 16:41 06:00 06:00 WBC 9.0 RBC 4.76 Hgb 15.0 Hct 43.9 MCV 92.2 MCH 31.4 MCHC 34.1 RDW 12.7 Plt Count 233 MPV 9.8 Sodium 138 Potassium 4.4 Chloride 102 Carbon Dioxide 26 Anion Gap 10 BUN 13 Creatinine 0.9 Creat Clearance w eGFR > 60 POC Glucometer 248 Random Glucose 175 H D Calcium 9.9 Total Bilirubin 0.9 D AST 25 D ALT 46 D Alkaline Phosphatase 86 D Total Protein 7.5 Albumin 4.3 Urine Color Urine Appearance Urine pH Ur Specific [place] Urine Protein Urine Glucose (UA) Urine Ketones Urine Blood Urine Nitrite Urine Bilirubin Urine Urobilinogen Ur Leukocyte Esterase RPR Titer HIV 1&2 Antibody Screen HIV P24 Antigen 04/05/17 04/05/17 04/05/17 06:00 11:27 16:28 WBC RBC Hgb Hct MCV MCH MCHC RDW Plt Count MPV Sodium Potassium Chloride Carbon Dioxide Anion Gap BUN Creatinine Creat Clearance w eGFR POC Glucometer 182 142 Random Glucose Calcium Total Bilirubin AST ALT Alkaline Phosphatase Total Protein Albumin Urine Color Urine Appearance Urine pH Ur Specific [place] Urine Protein Urine Glucose (UA) Urine Ketones Urine Blood Urine Nitrite Urine Bilirubin Urine Urobilinogen Ur Leukocyte Esterase RPR Titer Nonreactive HIV 1&2 Antibody Screen HIV P24 Antigen 04/06/17 04/06/17 04/06/17 05:53 11:42 16:36 WBC RBC Hgb Hct MCV MCH MCHC RDW Plt Count MPV Sodium Potassium Chloride Carbon Dioxide Anion Gap BUN Creatinine Creat Clearance w eGFR POC Glucometer 194 262 262 Random Glucose Calcium Total Bilirubin AST ALT Alkaline Phosphatase Total Protein Albumin Urine Color Urine Appearance Urine pH Ur Specific [place] Urine Protein Urine Glucose (UA) Urine Ketones Urine Blood Urine Nitrite Urine Bilirubin Urine Urobilinogen Ur Leukocyte Esterase RPR Titer HIV 1&2 Antibody Screen HIV P24 Antigen 04/07/17 04/07/17 04/08/17 11:06 16:20 05:46 WBC RBC Hgb Hct MCV MCH MCHC RDW Plt Count MPV Sodium Potassium Chloride Carbon Dioxide Anion Gap BUN Creatinine Creat Clearance w eGFR POC Glucometer 232 312 274 Random Glucose Calcium Total Bilirubin AST ALT Alkaline Phosphatase Total Protein Albumin Urine Color Urine Appearance Urine pH Ur Specific [place] Urine Protein Urine Glucose (UA) Urine Ketones Urine Blood Urine Nitrite Urine Bilirubin Urine Urobilinogen Ur Leukocyte Esterase RPR Titer HIV 1&2 Antibody Screen HIV P24 Antigen 04/08/17 04/08/17 11:28 16:23 WBC RBC Hgb Hct MCV MCH MCHC RDW Plt Count MPV Sodium Potassium Chloride Carbon Dioxide Anion Gap BUN Creatinine Creat Clearance w eGFR POC Glucometer 296 213 Random Glucose Calcium Total Bilirubin AST ALT Alkaline Phosphatase Total Protein Albumin Urine Color Urine Appearance Urine pH Ur Specific [place] Urine Protein Urine Glucose (UA) Urine Ketones Urine Blood Urine Nitrite Urine Bilirubin Urine Urobilinogen Ur Leukocyte Esterase RPR Titer HIV 1&2 Antibody Screen HIV P24 Antigen Pertinent Admission Physical Exam Findings: withdrawal sx - Treatment Hospital Course: Detox Protocol Followed, Detoxed Safely, Responded well, Discharged Condition Good, Rehab Referral Accepted Patient has Accepted a Rehab Referral to: Yes - Medication Discharge Medications: Ambulatory Orders Atorvastatin Ca [Lipitor] 10 mg PO HS 09/20/16 Losartan Potassium 25 mg PO DAILY 09/20/16 Verapamil HCl [Verapamil ER] 120 mg PO DAILY 09/20/16 Metformin HCl [Glucophage -] 500 mg PO DAILY 04/04/17 - Diagnosis (1) Nicotine dependence Current Visit: Yes Status: Chronic Qualifiers: Nicotine product type: cigarettes Substance use status: uncomplicated Qualified Code(s): F17.210 - Nicotine dependence, cigarettes, uncomplicated (2) Gout Current Visit: Yes Status: Chronic (3) Hypertension Current Visit: Yes Status: Chronic Qualifiers: Hypertension type: essential hypertension Qualified Code(s): I10 - Essential (primary) hypertension (4) RAMA (obstructive sleep apnea) Current Visit: Yes Status: Chronic (5) Obesity Current Visit: Yes Status: Chronic Qualifiers: Obesity classification: adult class 1 (BMI 30 ? 34.9) Body mass index: BMI 33.0-33.9 (6) Opioid dependence with withdrawal Current Visit: Yes Status: Chronic (7) Paranoid schizophrenia Current Visit: Yes Status: Chronic (8) Bronchitis Current Visit: No Status: Acute (9) DVT prophylaxis Current Visit: No Status: Acute (10) Edema, lower extremity Current Visit: No Status: Resolved (11) Substance induced mood disorder Current Visit: No Status: Acute (12) Anxiety disorder Current Visit: No Status: Chronic (13) Smoking Current Visit: No Status: Chronic (14) Type 2 diabetes mellitus Current Visit: Yes Status: Chronic - AMA Did Patient Leave Against Medical Advice: No
[2017-04-09] MEDS: PRENATAL VITAMINS W/ FOLIC ACID TABLET (FP) PO SCH (10:11)
[2017-04-09] MEDS: LOSARTAN POTASSIUM 25 MG TABLET PO SCH (10:11)
[2017-04-09] MEDS: NICOTINE 21 MG/24 HOURS TOPICAL PATCH TD SCH (10:12)
[2017-04-09] MEDS: VERAPAMIL HCL 120 MG E.R. TABLET PO SCH (10:12)
[2017-04-09 10:31] VITALS: BP 141/89; PULSE 103; TEMP 98.1
== END 2017-04-09 10:11 | disposition home or self-care (01) | DRG 773 ==
LOC: YASAS 08:24 → Y6N 12:40
PROVIDERS: ADMIT Internal Medicine Addiction Medicine; ATTEND Internal Medicine Addiction Medicine
PROC: HZ2ZZZZ Detoxification Services for Substance Abuse Treatment (ICD-10-PCS; principal; 2017-04-04)
DX: F11.23 Opioid dependence with withdrawal (principal); F17.210 Nicotine dependence, cigarettes, uncomplicated; F19.24 Other psychoactive substance dependence with psychoactive substance-induced mood disorder; F20.0 Paranoid schizophrenia; F41.9 Anxiety disorder, unspecified; E11.9 Type 2 diabetes mellitus without complications; I10 Essential (primary) hypertension; M10.9 Gout, unspecified; G47.30 Sleep apnea, unspecified; E66.9 Obesity, unspecified; Z68.33 Body mass index [BMI] 33.0-33.9, adult; J40 Bronchitis, not specified as acute or chronic; R60.9 Edema, unspecified; Z79.84 Long term (current) use of oral hypoglycemic drugs; E78.5 Hyperlipidemia, unspecified; Z79.4 Long term (current) use of insulin; Z91.5 Personal history of self-harm
CPT/HCPCS: 36415; 71020-TC; 80053; 81003; 85027; 86593; 87389; 93005; 93010

== ENCOUNTER 2017-08-08 00:42 | Emergency (ER) | payer OTHER ==
[2017-08-08 01:00] VITALS: BP 141/78; PULSE 72; TEMP 97; BMI 39.1
--- NOTE | 2017-08-08 01:38 | PDOC ---
History of Present Illness - General Chief Complaint: Injury Stated Complaint: NOSE PAIN Time Seen by Provider: 08/08/17 01:22 History Source: Patient Exam Limitations: No Limitations - History of Present Illness Initial Comments: 08/08/17 01:33 52M with pmh of opiate abuse on Methadone, DM2, HTN presents to ED after fall from toilet on sink 1 hour ago. Patient states that he regularly falls asleep sitting on the toilet so he can smoke cigarettes around bedtime and blow smoke out the bathroom window. Patient states that he took 20mg methadone and 10mg oxycodone a few hours ago and accidentally fell asleep and fell forward head first on the sink when he heard a crack and saw his nose was bloody. Past History - Past Medical History Allergies/Adverse Reactions: Allergies Allergy/AdvReac Type Severity Reaction Status Date / Time No Known Allergies Allergy Verified 08/08/17 00:59 Home Medications: Ambulatory Orders Atorvastatin Ca [Lipitor] 10 mg PO HS 09/20/16 Losartan Potassium 50 mg PO DAILY 09/20/16 Verapamil HCl [Verapamil ER] 120 mg PO DAILY 09/20/16 Canagliflozin [Invokana] 100 mg PO DAILY 05/29/17 Sitagliptin Phos/Metformin HCl [Janumet 50-1,000 mg Tablet] 1 each PO BID Anemia: No Asthma: No Cancer: No Cardiac Disorders: No CVA: No COPD: No CHF: No Dementia: No Diabetes: Yes (NIDDM) GI Disorders: No Disorders: No HTN: Yes Hypercholesterolemia: Yes (NO MED) Kidney Stones: No Liver Disease: No Psychiatric Problems: Yes (on risperdal) Seizures: No Thyroid Disease: No Other medical history: sleep apnea - Surgical History Abdominal Surgery: No Appendectomy: No Cardiac Surgery: No Cholecystectomy: No Lung Surgery: No Neurologic Surgery: No Orthopedic Surgery: No - Reproductive History Testicular Surgery: No - Immunization History Immunization Up to Date: Yes - Suicide/Smoking/Psychosocial Hx Smoking History: Current some day smoker Have you smoked in the past 12 months: Yes Number of Cigarettes Smoked Daily: 20 Information on smoking cessation initiated: No 'Breaking Loose' booklet given: 05/29/17 Hx Alcohol Use: No Drug/Substance Use Hx: No Substance Use Type: Prescribed, Tranquilizers Hx Substance Use Treatment: Yes ([facility] last month) Trauma Specific PMHX - Complaint Specific PMHX Arthritis: Yes (gout) Review of Systems - Review of Systems Able to Perform ROS?: Yes Is the patient limited Wolof proficient: No Constitutional: No: Symptoms Reported HEENTM: Yes: Nose Pain, Nose Bleeding. No: Hearing Loss, Mouth Pain, Dental Problems, Difficulty Swallowing, Mouth Swelling Respiratory: No: Symptoms reported Cardiac (ROS): No: Symptoms Reported ABD/GI: No: Symptoms Reported : No: Symptoms Reported Musculoskeletal: No: Symptoms Reported Integumentary: No: Symptoms Reported Neurological: No: Symptoms reported All Other Systems: Reviewed and Negative *Physical Exam - Vital Signs Last Vital Signs Temp Pulse Resp BP Pulse Ox 97 F L 72 18 141/78 100 08/08/17 00:55 08/08/17 00:55 08/08/17 00:55 08/08/17 00:55 08/08/17 00:55 - Physical Exam General Appearance: Yes: Nourished, Appropriately Dressed. No: Apparent Distress HEENT: positive: EOMI. negative: DAVID (miotic pupils), Other (Dried blood coming from rigt nostril, no nose difformity or asymetry.) Neck: negative: Tender Respiratory/Chest: positive: Lungs Clear, Normal Breath Sounds. negative: Chest Tender, Respiratory Distress Cardiovascular: positive: Regular Rhythm, Regular Rate, S1, S2 Gastrointestinal/Abdominal: positive: Normal Bowel Sounds, Flat, Soft. negative : Tender Musculoskeletal: positive: Normal Inspection, CVA Tenderness Extremity: positive: Normal Capillary Refill, Normal Inspection, Normal Range of Motion Neurologic: positive: Fully Oriented, Alert, Normal Mood/Affect, Responsive Medical Decision Making - Medical Decision Making 08/08/17 01:43 52M with opiate addiction on methadone presents to ed after fall on nose. CT head, facial bone and c-spine pending 08/08/17 04:00 Ct's negative. Patient ok for D/C *DC/Admit/Observation/Transfer Diagnosis at time of Disposition: Contusion of nose - Discharge Dispostion Disposition: HOME Admit: No - Referrals Referrals: Tan Grubbs MD [Primary Care Provider] - - Patient Instructions Printed Discharge Instructions: Nose Fracture - Post Discharge Activity
--- NOTE | 2017-08-08 01:46 | PDOC ---
Attending Attestation - Resident Resident Name: Alonso Robles - ED Attending Attestation I have performed the following: I have examined & evaluated the patient, The case was reviewed & discussed with the resident, I agree w/resident's findings & plan, Exceptions are as noted <Jesus Garcia - Last Filed: 08/08/17 01:45> - HPI HPI: 08/08/17 01:50 The patient is a 52 year old with history of hypertension, hyperlipidemia, DM, polysubstance abuse on methadone, who presents to the ED with nose pain and nose bleed after hitting his face this evening. Patient reports he fell asleep while sitting on the toilet, which is not uncommon for him. He fell forward, hitting his face. He states her heard a crack and subsequently developed bleeding from the right nares. No headache, blurred vision, paresthesias, focal weakness. - Physicial Exam PE: 08/08/17 01:52 Constitutional: Awake, alert, oriented. No acute distress. Head: Normocephalic. See ENT. Eyes: PERRL. EOMI. Conjunctivae are not pale. ENT: +Dried blood on face. +Laceration to right nares. Soft tissue swelling surrounding the nose with no gross bony deformity. Mucous membranes are moist and intact. Posterior pharynx without exudates or erythema. Uvula midline. Neck: Supple. No midline tenderness. Full ROM. No lymphadenopathy. - Medical Decision Making 08/08/17 01:53 Documentation prepared by Rocio Figueroa, acting as medical microbiologist for Jesus Garcia DO. <Rocio Figueroa - Last Filed: 08/08/17 01:53>
== END 2017-08-08 04:47 | disposition home or self-care (01) ==
LOC: JER 00:42
DX: S00.33XA Contusion of nose, initial encounter (principal); W18.11XA Fall from or off toilet without subsequent striking against object, initial encounter; Y93.89 Activity, other specified; Y92.002 Bathroom of unspecified non-institutional (private) residence as the place of occurrence of the external cause; F15.20 Other stimulant dependence, uncomplicated; F17.210 Nicotine dependence, cigarettes, uncomplicated; E11.9 Type 2 diabetes mellitus without complications; I10 Essential (primary) hypertension; F99 Mental disorder, not otherwise specified
CPT/HCPCS: 70450-TC; 70486-TC; 72125-TC; 99281-25